=== PATIENT | male | born 1965 | race Caucasian/White ===

== ENCOUNTER 2018-04-15 21:12 | Emergency (ER) | payer OTHER ==
[2018-04-15 21:55] LABS: BASOPHIL % 0.5 % (0-2); PLATELET COUNT 240 x10^3mcL (130-400); RED CELL DISTRIBUTION WIDTH 14.4 % (11.5-14.5)
[2018-04-15 22:01] LABS: CARBON DIOXIDE 26.4 mmol/L (21-32); CHLORIDE SERUM 89 mmol/L (98-107); CREATININE SERUM 0.8 mg/dL (0.7-1.3); GFR1 > 60 mL/min; GLUCOSE SERUM 205 mg/dL (74-106); SODIUM SERUM 126 mmol/L (136-145)
[2018-04-15 22:05] LABS: ALBUMIN 3.7 g/dL (3.4-5.0); ALKALINE PHOSPHATASE 117 U/L (46-116); ALT/SGPT 47 U/L (16-63); AST/SGOT 40 U/L (15-37); BILIRUBIN TOTAL 0.93 mg/dL (0.20-1.00); LIPASE 133 IU/L (73-393); MAGNESIUM 1.7 mg/dL (1.8-2.4); TOTAL PROTEIN, SERUM 7.3 g/dL (6.4-8.2)
[2018-04-16 00:15] LABS: AMPHETAMINE QUAL UR NONE DETECTED (NEG <=1000)
[2018-04-16 00:49] VITALS: BP 142/103
== END 2018-04-16 00:49 | disposition home or self-care (01) ==
LOC: ED 21:12
PROVIDERS: Emergency Medicine
DX: K29.00 Acute gastritis without bleeding (principal); E87.1 Hypo-osmolality and hyponatremia; F17.200 Nicotine dependence, unspecified, uncomplicated; Z71.6 Tobacco abuse counseling; F14.10 Cocaine abuse, uncomplicated; I10 Essential (primary) hypertension; E11.9 Type 2 diabetes mellitus without complications; Z88.6 Allergy status to analgesic agent
CPT/HCPCS: 99406; G0480; J2270; J2405; J3490

== ENCOUNTER 2018-08-13 13:35 | Inpatient (IN) | payer OTHER ==
[~2018-08-13] VITALS: Ht 180.3 cm; Wt 71.9 kg
[2018-08-13 13:45] VITALS: Ht 180.3 cm; Wt 71.9 kg
[2018-08-13 15:01] LABS: ALBUMIN 3.7 g/dL (3.4-5.0); ALKALINE PHOSPHATASE 94 U/L (46-116); ALT/SGPT 23 U/L (16-63); AST/SGOT 29 U/L (15-37); CARBON DIOXIDE 20.3 mmol/L (21-32); CHLORIDE SERUM 83 mmol/L (98-107); CREATININE SERUM 0.6 mg/dL (0.7-1.3); GFR1 > 60 mL/min; GLUCOSE SERUM 221 mg/dL (74-106); LIPASE 137 IU/L (73-393); POTASSIUM SERUM 4.1 mmol/L (3.5-5.1); TOTAL PROTEIN, SERUM 7.7 g/dL (6.4-8.2)
[2018-08-13 15:03] LABS: SODIUM SERUM 116 mmol/L (136-145)
[2018-08-13 15:07] LABS: CALCIUM 8.6 mg/dL (8.5-10.1)
[2018-08-13 15:18] LABS: BASOPHIL % 0.6 % (0-2); PLATELET COUNT 290 x10^3mcL (130-400); RED CELL DISTRIBUTION WIDTH 13.8 % (11.5-14.5)
[2018-08-13 16:58] LABS: AMPHETAMINE QUAL UR NONE DETECTED (See below)
[2018-08-13 17:42] LABS: MAGNESIUM 1.6 mg/dL (1.8-2.4); PHOSPHOROUS 3.3 mg/dL (2.5-4.9)
[2018-08-13] MEDS ORDERED: XAN1 PO (17:46)
[2018-08-13] MEDS ORDERED: LISINOPRIL2.5 MG PO (17:46)
[2018-08-13] MEDS ORDERED: METFORMIN HCL1000 MG PO (17:46)
[2018-08-13 17:47] LABS: T3 TOTAL 0.7 ng/mL
[2018-08-13] MEDS ORDERED: LANTUS SOLOS100 U/M1 SQ (17:49)
[2018-08-13 17:54] LABS: CHOLESTEROL/HDL RATIO 2.7
[2018-08-13 18:30] LABS: FREE T4 1.47 ng/dL (0.76-1.46); T4(THYROXINE) 7.8 ug/dL (4.7-13.3)
[2018-08-13 18:40] VITALS: BP 147/100
[2018-08-13 21:14] VITALS: BP 156/91
[2018-08-14 00:37] LABS: microscopic required? NO
[2018-08-14 00:56] LABS: urine erythrocyte NEGATIVE (NEGATIVE)
[2018-08-14 05:04] VITALS: BP 150/96
[2018-08-14 07:08] LABS: BASOPHIL % 0.4 % (0-2); PLATELET COUNT 271 x10^3mcL (130-400); RED CELL DISTRIBUTION WIDTH 13.4 % (11.5-14.5)
[2018-08-14 07:09] LABS: CARBON DIOXIDE 22.9 mmol/L (21-32); CHLORIDE SERUM 92 mmol/L (98-107); CREATININE SERUM 0.8 mg/dL (0.7-1.3); GFR1 > 60 mL/min; GLUCOSE SERUM 195 mg/dL (74-106); POTASSIUM SERUM 3.9 mmol/L (3.5-5.1); SODIUM SERUM 126 mmol/L (136-145)
[2018-08-14 08:44] VITALS: BP 166/100
[2018-08-14 13:11] VITALS: BP 162/100
[2018-08-14 14:46] VITALS: BP 159/94
[2018-08-14 17:09] VITALS: BP 151/94
[2018-08-14 20:19] VITALS: BP 154/93
[2018-08-15] VITALS (7 sets, daily range): BP systolic 139–152; BP diastolic 86–104
[2018-08-15 06:30] LABS: BASOPHIL % 0.4 % (0-2); PLATELET COUNT 258 x10^3mcL (130-400); RED CELL DISTRIBUTION WIDTH 13.5 % (11.5-14.5)
[2018-08-15 06:49] LABS: CALCIUM 8.6 mg/dL (8.5-10.1); CARBON DIOXIDE 26.3 mmol/L (21-32); CHLORIDE SERUM 96 mmol/L (98-107); CREATININE SERUM 0.7 mg/dL (0.7-1.3); GFR1 > 60 mL/min; GLUCOSE SERUM 223 mg/dL (74-106); MAGNESIUM 1.7 mg/dL (1.8-2.4); POTASSIUM SERUM 4.4 mmol/L (3.5-5.1); SODIUM SERUM 129 mmol/L (136-145)
[2018-08-15] MEDS ORDERED: LISINOPRIL10 MG PO (14:37)
[2018-08-15] MEDS ORDERED: NIC21 TD (14:37)
[2018-08-16 00:24] VITALS: BP 119/86
[2018-08-16 05:16] VITALS: BP 130/82
[2018-08-16 05:42] LABS: BASOPHIL % 0.4 % (0-2); PLATELET COUNT 274 x10^3mcL (130-400); RED CELL DISTRIBUTION WIDTH 13.4 % (11.5-14.5)
[2018-08-16 06:00] LABS: CALCIUM 8.7 mg/dL (8.5-10.1); CARBON DIOXIDE 25.8 mmol/L (21-32); CHLORIDE SERUM 96 mmol/L (98-107); CREATININE SERUM 0.9 mg/dL (0.7-1.3); GFR1 > 60 mL/min; GLUCOSE SERUM 236 mg/dL (74-106); MAGNESIUM 1.9 mg/dL (1.8-2.4); POTASSIUM SERUM 3.9 mmol/L (3.5-5.1); SODIUM SERUM 130 mmol/L (136-145)
[2018-08-16 09:24] VITALS: BP 136/88
[2018-08-16 10:22] VITALS: BP 136/88
[2018-08-16 13:26] VITALS: BP 100/68
== END 2018-08-16 13:50 | disposition home or self-care (01) | DRG 896 ==
LOC: ED 13:35 → DU 15:42
PROVIDERS: Emergency Medicine; Internal Medicine
DX: F13.239 Sedative, hypnotic or anxiolytic dependence with withdrawal, unspecified (principal); G93.41 Metabolic encephalopathy; E87.1 Hypo-osmolality and hyponatremia; G90.8 Other disorders of autonomic nervous system; T42.4X5A Adverse effect of benzodiazepines, initial encounter; G47.00 Insomnia, unspecified; F10.129 Alcohol abuse with intoxication, unspecified; E86.0 Dehydration; E83.42 Hypomagnesemia; E11.65 Type 2 diabetes mellitus with hyperglycemia; I10 Essential (primary) hypertension; J32.3 Chronic sphenoidal sinusitis; F41.9 Anxiety disorder, unspecified; Y90.0 Blood alcohol level of less than 20 mg/100 ml; Z68.22 Body mass index [BMI] 22.0-22.9, adult; Z79.4 Long term (current) use of insulin; Z79.84 Long term (current) use of oral hypoglycemic drugs
CPT/HCPCS: 82962; 84439; C9113; G0480; J2060; J2405; J3475; J3490; J7030; Q0092

== ENCOUNTER 2018-09-01 12:24 | Emergency (ER) | payer OTHER ==
[~2018-09-01] VITALS: Ht 180.3 cm; Wt 67.1 kg
[~2018-09-01 12:24] MED LIST: LANTUS SOLOS100 U/M1 SQ; LISINOPRIL10 MG PO; LISINOPRIL2.5 MG PO; METFORMIN HCL1000 MG PO; NIC21 TD; XAN1 PO
[2018-09-01 12:28] VITALS: Ht 180.3 cm; Wt 67.1 kg
[2018-09-01 13:19] LABS: BASOPHIL % 0.3 % (0-2); PLATELET COUNT 357 x10^3mcL (130-400); RED CELL DISTRIBUTION WIDTH 14.2 % (11.5-14.5)
[2018-09-01 13:30] LABS: CALCIUM 8.7 mg/dL (8.5-10.1); CARBON DIOXIDE 26.7 mmol/L (21-32); CHLORIDE SERUM 95 mmol/L (98-107); CREATININE SERUM 0.8 mg/dL (0.7-1.3); GFR1 > 60 mL/min; GLUCOSE SERUM 296 mg/dL (74-106); POTASSIUM SERUM 4.4 mmol/L (3.5-5.1); SODIUM SERUM 129 mmol/L (136-145)
[2018-09-01 13:34] LABS: ALBUMIN 3.5 g/dL (3.4-5.0); ALKALINE PHOSPHATASE 103 U/L (46-116); ALT/SGPT 25 U/L (16-63); AST/SGOT 24 U/L (15-37); BILIRUBIN TOTAL 0.5 mg/dL (0.20-1.00); MAGNESIUM 1.4 mg/dL (1.8-2.4); TOTAL PROTEIN, SERUM 7.7 g/dL (6.4-8.2)
[2018-09-01 14:39] LABS: AMPHETAMINE QUAL UR NONE DETECTED (See below)
[2018-09-01 16:03] VITALS: BP 149/96
== END 2018-09-01 16:03 | disposition home or self-care (01) ==
LOC: ED 12:24
PROVIDERS: Emergency Medicine
DX: R53.1 Weakness (principal); F41.9 Anxiety disorder, unspecified; E87.1 Hypo-osmolality and hyponatremia; F10.10 Alcohol abuse, uncomplicated; I10 Essential (primary) hypertension; E11.9 Type 2 diabetes mellitus without complications; Z98.890 Other specified postprocedural states; Z88.6 Allergy status to analgesic agent
CPT/HCPCS: G0480

== ENCOUNTER 2018-09-20 22:12 | Emergency (ER) | payer OTHER ==
[~2018-09-20] VITALS: Ht 182.9 cm; Wt 65.4 kg
[2018-09-20 23:08] LABS: BASOPHIL % 0.4 % (0-2); PLATELET COUNT 320 x10^3mcL (130-400); RED CELL DISTRIBUTION WIDTH 14.2 % (11.5-14.5)
[2018-09-20 23:25] LABS: ALBUMIN 3.7 g/dL (3.4-5.0); ALKALINE PHOSPHATASE 100 U/L (46-116); ALT/SGPT 29 U/L (16-63); AST/SGOT 21 U/L (15-37); BILIRUBIN TOTAL 0.9 mg/dL (0.20-1.00); CALCIUM 8.7 mg/dL (8.5-10.1); CARBON DIOXIDE 24.8 mmol/L (21-32); CHLORIDE SERUM 88 mmol/L (98-107); CREATININE SERUM 0.9 mg/dL (0.7-1.3); GFR1 > 60 mL/min; GLUCOSE SERUM 239 mg/dL (74-106); POTASSIUM SERUM 4.1 mmol/L (3.5-5.1); TOTAL PROTEIN, SERUM 7.6 g/dL (6.4-8.2)
[2018-09-20 23:28] LABS: SODIUM SERUM 124 mmol/L (136-145)
[2018-09-21 00:50] VITALS: BP 153/94
== END 2018-09-21 00:50 | disposition home or self-care (01) ==
LOC: ED 22:12
PROVIDERS: Emergency Medicine
DX: E87.1 Hypo-osmolality and hyponatremia (principal); F41.9 Anxiety disorder, unspecified; I10 Essential (primary) hypertension; E11.9 Type 2 diabetes mellitus without complications; F17.210 Nicotine dependence, cigarettes, uncomplicated; Z88.5 Allergy status to narcotic agent
CPT/HCPCS: 36415; 82962; Q0162

== ENCOUNTER 2018-10-24 15:08 | Inpatient (IN) | payer OTHER ==
[~2018-10-24] VITALS: Ht 180.3 cm; Wt 63.5 kg
[2018-10-24 15:11] VITALS: Ht 180.3 cm; Wt 63.5 kg
[2018-10-24 15:47] LABS: CALCIUM 9.4 mg/dL (8.5-10.1); CARBON DIOXIDE 27.7 mmol/L (21-32); CHLORIDE SERUM 86 mmol/L (98-107); CREATININE SERUM 0.8 mg/dL (0.7-1.3); GFR1 > 60 mL/min; GLUCOSE SERUM 233 mg/dL (74-106); POTASSIUM SERUM 4.4 mmol/L (3.5-5.1)
[2018-10-24 15:50] LABS: AMPHETAMINE QUAL UR NONE DETECTED (See below)
[2018-10-24 15:56] LABS: SODIUM SERUM 123 mmol/L (136-145)
[2018-10-24 16:06] LABS: BASOPHIL % 0.4 % (0-2); PLATELET COUNT 308 x10^3mcL (130-400); RED CELL DISTRIBUTION WIDTH 13.5 % (11.5-14.5)
[2018-10-24 17:56] LABS: CHOLESTEROL/HDL RATIO 2.6; MAGNESIUM 1.5 mg/dL (1.8-2.4); PHOSPHOROUS 3.7 mg/dL (2.5-4.9)
[2018-10-24 17:58] LABS: T3 TOTAL 0.73 ng/mL
[2018-10-24 18:06] LABS: FREE T4 1.2 ng/dL (0.76-1.46); FREE THYROXINE INDEX 2.8 ug/dL (1.4-4.5); T4(THYROXINE) 7.2 ug/dL (4.7-13.3)
[2018-10-24 18:29] VITALS: BP 151/97
[2018-10-24 19:20] VITALS: BP 145/91
[2018-10-25 06:14] VITALS: BP 144/90
[2018-10-25 07:48] VITALS: BP 162/96
[2018-10-25 09:31] LABS: BASOPHIL % 0.4 % (0-2); PLATELET COUNT 293 x10^3mcL (130-400); RED CELL DISTRIBUTION WIDTH 13.5 % (11.5-14.5)
[2018-10-25 10:15] LABS: CARBON DIOXIDE 29.9 mmol/L (21-32); CHLORIDE SERUM 96 mmol/L (98-107); CREATININE SERUM 0.9 mg/dL (0.7-1.3); GFR1 > 60 mL/min; GLUCOSE SERUM 272 mg/dL (74-106); POTASSIUM SERUM 4.4 mmol/L (3.5-5.1); SODIUM SERUM 131 mmol/L (136-145)
[2018-10-25 11:51] VITALS: BP 150/90
[2018-10-25 17:18] VITALS: BP 152/87
[2018-10-25 18:06] LABS: microscopic required? NO
[2018-10-25 18:13] LABS: UA SPECIFIC GRAVITY <=1.005 (1.005-1.035); urine erythrocyte NEGATIVE (NEGATIVE)
[2018-10-25 19:15] VITALS: BP 149/89
[2018-10-25 20:06] VITALS: BP 150/87
[2018-10-26 05:35] VITALS: BP 151/92
[2018-10-26 06:42] LABS: CALCIUM 9.1 mg/dL (8.5-10.1); CARBON DIOXIDE 28.4 mmol/L (21-32); CHLORIDE SERUM 98 mmol/L (98-107); CREATININE SERUM 0.9 mg/dL (0.7-1.3); GFR1 > 60 mL/min; GLUCOSE SERUM 197 mg/dL (74-106); MAGNESIUM 1.9 mg/dL (1.8-2.4); SODIUM SERUM 132 mmol/L (136-145)
[2018-10-26 06:43] LABS: BASOPHIL % 0.7 % (0-2); PLATELET COUNT 256 x10^3mcL (130-400); RED CELL DISTRIBUTION WIDTH 13.7 % (11.5-14.5)
[2018-10-26 09:20] VITALS: BP 144/79
[2018-10-26 11:13] LABS: CALCIUM 8.6 mg/dL (8.5-10.1); CARBON DIOXIDE 29.4 mmol/L (21-32); CHLORIDE SERUM 99 mmol/L (98-107); CREATININE SERUM 0.8 mg/dL (0.7-1.3); GFR1 > 60 mL/min; GLUCOSE SERUM 227 mg/dL (74-106); POTASSIUM SERUM 4.4 mmol/L (3.5-5.1); SODIUM SERUM 131 mmol/L (136-145)
[2018-10-26 12:58] VITALS: BP 149/105
[2018-10-26] MEDS ORDERED: VIS25 PO (13:02)
[2018-10-26 13:58] VITALS: BP 149/105
== END 2018-10-26 17:16 | disposition home or self-care (01) | DRG 897 ==
LOC: ED 15:08 → DU 17:01 → MU 17:01 → DU 10-25 17:43
PROVIDERS: Emergency Medicine; Family Medicine; General Practice
DX: F13.239 Sedative, hypnotic or anxiolytic dependence with withdrawal, unspecified (principal); D68.69 Other thrombophilia; E87.1 Hypo-osmolality and hyponatremia; E86.0 Dehydration; G25.1 Drug-induced tremor; E11.65 Type 2 diabetes mellitus with hyperglycemia; E83.42 Hypomagnesemia; I10 Essential (primary) hypertension; F41.1 Generalized anxiety disorder; F10.10 Alcohol abuse, uncomplicated; F12.10 Cannabis abuse, uncomplicated; F17.210 Nicotine dependence, cigarettes, uncomplicated; Z68.21 Body mass index [BMI] 21.0-21.9, adult; Z79.4 Long term (current) use of insulin; Z79.84 Long term (current) use of oral hypoglycemic drugs; Y92.009 Unspecified place in unspecified non-institutional (private) residence as the place of occurrence of the external cause
CPT/HCPCS: 82962; 83880; 84439; G0480; J2060; J2405; J7030; J7040; Q0092

== ENCOUNTER 2018-11-01 13:50 | Inpatient (IN) | payer OTHER ==
[~2018-11-01] VITALS: Ht 182.9 cm; Wt 66.8 kg
[~2018-11-01 13:50] MED LIST changes: +VIS25 PO
[2018-11-01 14:04] VITALS: Ht 182.9 cm; Wt 66.8 kg
[2018-11-01 14:16] LABS: BASOPHIL % 0.7 % (0-2); PLATELET COUNT 336 x10^3mcL (130-400); RED CELL DISTRIBUTION WIDTH 13.3 % (11.5-14.5)
[2018-11-01 14:31] LABS: ALBUMIN 4.1 g/dL (3.4-5.0); ALKALINE PHOSPHATASE 108 U/L (46-116); ALT/SGPT 17 U/L (16-63); AST/SGOT 14 U/L (15-37); CALCIUM 9.1 mg/dL (8.5-10.1); CARBON DIOXIDE 22.9 mmol/L (21-32); CHLORIDE SERUM 81 mmol/L (98-107); CREATININE SERUM 0.8 mg/dL (0.7-1.3); GFR1 > 60 mL/min; GLUCOSE SERUM 253 mg/dL (74-106); LIPASE 52 IU/L (73-393); TOTAL PROTEIN, SERUM 8.1 g/dL (6.4-8.2)
[2018-11-01 14:56] LABS: POTASSIUM SERUM 4.9 mmol/L (3.5-5.1)
[2018-11-01 15:20] LABS: microscopic required? YES; urine erythrocyte TRACE (NEGATIVE)
[2018-11-01 15:35] LABS: SODIUM SERUM 116 mmol/L (136-145)
[2018-11-01 15:37] LABS: AMPHETAMINE QUAL UR POSITIVE (See below)
[2018-11-01] MEDS ORDERED: ATENOLOL25 MG (15:59)
[2018-11-01] MEDS ORDERED: PAXIL10 MG (16:01)
[2018-11-01 16:37] LABS: MAGNESIUM 1.5 mg/dL (1.8-2.4); PHOSPHOROUS 3.2 mg/dL (2.5-4.9)
[2018-11-01 16:55] VITALS: BP 142/87
[2018-11-01 18:28] LABS: CARBON DIOXIDE 22.9 mmol/L (21-32); CHLORIDE SERUM 87 mmol/L (98-107); CREATININE SERUM 0.8 mg/dL (0.7-1.3); GFR1 > 60 mL/min; GLUCOSE SERUM 189 mg/dL (74-106); POTASSIUM SERUM 4.4 mmol/L (3.5-5.1)
[2018-11-01 18:30] LABS: SODIUM SERUM 121 mmol/L (136-145)
[2018-11-01 21:11] VITALS: BP 146/90
[2018-11-01 22:20] LABS: CARBON DIOXIDE 23.8 mmol/L (21-32); CHLORIDE SERUM 90 mmol/L (98-107); CREATININE SERUM 0.8 mg/dL (0.7-1.3); GFR1 > 60 mL/min; GLUCOSE SERUM 152 mg/dL (74-106); POTASSIUM SERUM 4.4 mmol/L (3.5-5.1)
[2018-11-01 22:27] LABS: SODIUM SERUM 124 mmol/L (136-145)
[2018-11-02 05:55] VITALS: BP 111/81
[2018-11-02 07:05] LABS: BASOPHIL % 0.4 % (0-2); PLATELET COUNT 308 x10^3mcL (130-400); RED CELL DISTRIBUTION WIDTH 13.1 % (11.5-14.5)
[2018-11-02 07:36] LABS: CALCIUM 9.1 mg/dL (8.5-10.1); CARBON DIOXIDE 23.1 mmol/L (21-32); CHLORIDE SERUM 90 mmol/L (98-107); GFR1 > 60 mL/min; GLUCOSE SERUM 209 mg/dL (74-106); POTASSIUM SERUM 4.2 mmol/L (3.5-5.1); SODIUM SERUM 128 mmol/L (136-145)
[2018-11-02 09:18] VITALS: BP 146/94
[2018-11-02] MEDS ORDERED: LIB25 PO ×4 (11:54→11:55)
[2018-11-02 11:58] VITALS: BP 146/94
[2018-11-02 15:25] LABS: CALCIUM 9.3 mg/dL (8.5-10.1); CARBON DIOXIDE 22.4 mmol/L (21-32); CHLORIDE SERUM 94 mmol/L (98-107); GFR1 > 60 mL/min; GLUCOSE SERUM 215 mg/dL (74-106); POTASSIUM SERUM 4.1 mmol/L (3.5-5.1); SODIUM SERUM 128 mmol/L (136-145)
[2018-11-02 17:07] VITALS: BP 120/79
[2018-11-02 20:04] VITALS: BP 115/73
[2018-11-03 05:44] VITALS: BP 113/76
[2018-11-03 07:47] LABS: ALKALINE PHOSPHATASE 89 U/L (46-116); ALT/SGPT 14 U/L (16-63); AST/SGOT 12 U/L (15-37); BILIRUBIN TOTAL 0.5 mg/dL (0.20-1.00); CARBON DIOXIDE 22.7 mmol/L (21-32); CHLORIDE SERUM 95 mmol/L (98-107); CREATININE SERUM 0.9 mg/dL (0.7-1.3); GFR1 > 60 mL/min; GLUCOSE SERUM 173 mg/dL (74-106); MAGNESIUM 1.6 mg/dL (1.8-2.4); POTASSIUM SERUM 4.4 mmol/L (3.5-5.1); SODIUM SERUM 131 mmol/L (136-145); TOTAL PROTEIN, SERUM 6.8 g/dL (6.4-8.2)
[2018-11-03 07:50] LABS: ALBUMIN 3.3 g/dL (3.4-5.0)
[2018-11-03 08:22] VITALS: BP 116/87
[2018-11-03 08:29] LABS: BASOPHIL % 0.7 % (0-2); PLATELET COUNT 293 x10^3mcL (130-400); RED CELL DISTRIBUTION WIDTH 12.7 % (11.5-14.5)
[2018-11-03 13:47] VITALS: BP 116/87
== END 2018-11-03 14:07 | disposition home or self-care (01) | DRG 896 ==
LOC: ED 13:50 → DU 16:03 → MU 16:03 → DU 16:54
PROVIDERS: Emergency Medicine; Family Medicine; Internal Medicine
DX: F10.239 Alcohol dependence with withdrawal, unspecified (principal); G92 Toxic encephalopathy; E87.1 Hypo-osmolality and hyponatremia; F10.229 Alcohol dependence with intoxication, unspecified; E11.65 Type 2 diabetes mellitus with hyperglycemia; I10 Essential (primary) hypertension; E86.0 Dehydration; F41.1 Generalized anxiety disorder; E86.1 Hypovolemia; R74.0 Nonspecific elevation of levels of transaminase and lactic acid dehydrogenase [LDH]; D72.829 Elevated white blood cell count, unspecified; Y90.0 Blood alcohol level of less than 20 mg/100 ml; Z79.899 Other long term (current) drug therapy; F17.210 Nicotine dependence, cigarettes, uncomplicated; Z79.84 Long term (current) use of oral hypoglycemic drugs; Z91.19 Patient's noncompliance with other medical treatment and regimen
CPT/HCPCS: 82962; 90732; C9113; G0480; J2060; J7030; J7070; Q0092; Q0177

== ENCOUNTER 2018-11-24 20:08 | Emergency (ER) | payer OTHER ==
[~2018-11-24] VITALS: Ht 180.3 cm; Wt 65.8 kg
[~2018-11-24 20:08] MED LIST changes: +ATENOLOL25 MG; +LIB25 PO; +PAXIL10 MG
[2018-11-24 20:13] VITALS: Ht 180.3 cm; Wt 65.8 kg
[2018-11-24 22:16] LABS: BASOPHIL % 0.5 % (0-2); PLATELET COUNT 290 x10^3mcL (130-400); RED CELL DISTRIBUTION WIDTH 12.3 % (11.5-14.5)
[2018-11-24 22:32] LABS: ALKALINE PHOSPHATASE 101 U/L (46-116); ALT/SGPT 18 U/L (16-63); AST/SGOT 16 U/L (15-37); CALCIUM 8.1 mg/dL (8.5-10.1); CARBON DIOXIDE 21.9 mmol/L (21-32); CHLORIDE SERUM 81 mmol/L (98-107); CREATININE SERUM 0.8 mg/dL (0.7-1.3); GFR1 > 60 mL/min; GLUCOSE SERUM 180 mg/dL (74-106); TOTAL PROTEIN, SERUM 6.7 g/dL (6.4-8.2)
[2018-11-24 22:36] LABS: ALBUMIN 3.2 g/dL (3.4-5.0)
[2018-11-24 22:47] LABS: SODIUM SERUM 113 mmol/L (136-145)
[2018-11-25 05:03] VITALS: BP 128/73
== END 2018-11-25 05:03 | disposition short-term general hospital (02) ==
LOC: ED 20:08
PROVIDERS: Emergency Medicine
DX: F41.9 Anxiety disorder, unspecified (principal); E87.1 Hypo-osmolality and hyponatremia; I10 Essential (primary) hypertension; E11.9 Type 2 diabetes mellitus without complications; Z98.890 Other specified postprocedural states; Z88.5 Allergy status to narcotic agent
CPT/HCPCS: J2060; J7030

== ENCOUNTER 2018-12-23 05:17 | Inpatient (IN) | payer OTHER ==
[~2018-12-23] VITALS: Ht 180.3 cm; Wt 58.1 kg
[2018-12-23 06:16] LABS: BASOPHIL % 0.3 % (0-2); PLATELET COUNT 357 x10^3mcL (130-400); RED CELL DISTRIBUTION WIDTH 13.2 % (11.5-14.5)
[2018-12-23 06:31] LABS: ALBUMIN 4.5 g/dL (3.4-5.0); ALKALINE PHOSPHATASE 130 U/L (46-116); ALT/SGPT 18 U/L (16-63); AST/SGOT 17 U/L (15-37); BILIRUBIN TOTAL 1.1 mg/dL (0.20-1.00); CALCIUM 9.6 mg/dL (8.5-10.1); CARBON DIOXIDE 16.2 mmol/L (21-32); CHLORIDE SERUM 81 mmol/L (98-107); CREATININE SERUM 1.4 mg/dL (0.7-1.3); GFR1 56 mL/min; GLUCOSE SERUM 381 mg/dL (74-106); POTASSIUM SERUM 4.3 mmol/L (3.5-5.1)
[2018-12-23 06:36] LABS: TOTAL PROTEIN, SERUM 8.7 g/dL (6.4-8.2)
[2018-12-23 06:39] LABS: SODIUM SERUM 122 mmol/L (136-145)
[2018-12-23 08:12] LABS: AMPHETAMINE QUAL UR NONE DETECTED (See below)
[2018-12-23 08:48] LABS: UA SPECIFIC GRAVITY 1.025 (1.005-1.035); microscopic required? YES; urine erythrocyte TRACE (NEGATIVE)
[2018-12-23 13:50] VITALS: BP 158/102
[2018-12-23 17:00] VITALS: BP 147/90
[2018-12-23 21:20] VITALS: BP 144/87
[2018-12-24 05:54] VITALS: BP 123/78
[2018-12-24 06:10] LABS: CALCIUM 8.5 mg/dL (8.5-10.1); CARBON DIOXIDE 22.8 mmol/L (21-32); CHLORIDE SERUM 94 mmol/L (98-107); CREATININE SERUM 0.7 mg/dL (0.7-1.3); GFR1 > 60 mL/min; GLUCOSE SERUM 162 mg/dL (74-106); MAGNESIUM 1.7 mg/dL (1.8-2.4); POTASSIUM SERUM 3.5 mmol/L (3.5-5.1); SODIUM SERUM 129 mmol/L (136-145)
[2018-12-24 08:44] VITALS: BP 155/92
[2018-12-24 09:01] LABS: PLATELET COUNT 256 x10^3mcL (130-400); RED CELL DISTRIBUTION WIDTH 12.9 % (11.5-14.5)
[2018-12-24 12:55] VITALS: BP 96/63
[2018-12-24 16:52] VITALS: BP 118/72
[2018-12-25] VITALS (7 sets, daily range): BP systolic 117–153; BP diastolic 63–93
[2018-12-25 07:29] LABS: CALCIUM 7.6 mg/dL (8.5-10.1); CARBON DIOXIDE 22.7 mmol/L (21-32); CHLORIDE SERUM 99 mmol/L (98-107); CREATININE SERUM 0.7 mg/dL (0.7-1.3); GFR1 > 60 mL/min; GLUCOSE SERUM 224 mg/dL (74-106); POTASSIUM SERUM 3.3 mmol/L (3.5-5.1); SODIUM SERUM 133 mmol/L (136-145)
[2018-12-25 09:38] LABS: BASOPHIL % 0.7 % (0-2); PLATELET COUNT 247 x10^3mcL (130-400); RED CELL DISTRIBUTION WIDTH 13.7 % (11.5-14.5)
[2018-12-26 05:26] VITALS: BP 154/89
[2018-12-26 08:59] VITALS: BP 129/84
[2018-12-26 12:34] VITALS: BP 151/87
[2018-12-26 13:19] VITALS: Ht 180.3 cm; Wt 58.1 kg
[2018-12-26 16:26] VITALS: BP 125/82
[2018-12-26 23:59] VITALS: BP 152/100
[2018-12-27 05:22] VITALS: BP 145/93
[2018-12-27 06:18] LABS: BASOPHIL % 0.8 % (0-2); PLATELET COUNT 253 x10^3mcL (130-400); RED CELL DISTRIBUTION WIDTH 13.4 % (11.5-14.5)
[2018-12-27 06:46] LABS: CALCIUM 8.4 mg/dL (8.5-10.1); CARBON DIOXIDE 27.5 mmol/L (21-32); CHLORIDE SERUM 99 mmol/L (98-107); CREATININE SERUM 0.7 mg/dL (0.7-1.3); GFR1 > 60 mL/min; GLUCOSE SERUM 193 mg/dL (74-106); MAGNESIUM 1.4 mg/dL (1.8-2.4); POTASSIUM SERUM 3.6 mmol/L (3.5-5.1); SODIUM SERUM 135 mmol/L (136-145)
[2018-12-27 08:52] VITALS: BP 134/89
[2018-12-27 13:28] VITALS: BP 128/89
[2018-12-27 15:27] VITALS: BP 128/89
[2018-12-27 17:28] VITALS: BP 135/82
== END 2018-12-27 17:35 | disposition home health service (06) | DRG 690 ==
LOC: ED 05:17 → MU 09:28 → DU 09:28 → MU 13:42 → DU 13:56
PROVIDERS: Emergency Medicine; Specialist; ADMIT Internal Medicine
DX: N39.0 Urinary tract infection, site not specified (principal); E87.1 Hypo-osmolality and hyponatremia; F40.01 Agoraphobia with panic disorder; I16.0 Hypertensive urgency; I12.9 Hypertensive chronic kidney disease with stage 1 through stage 4 chronic kidney disease, or unspecified chronic kidney disease; N18.1 Chronic kidney disease, stage 1; E11.9 Type 2 diabetes mellitus without complications; F41.9 Anxiety disorder, unspecified; F32.9 Major depressive disorder, single episode, unspecified; F10.10 Alcohol abuse, uncomplicated; Z79.4 Long term (current) use of insulin
CPT/HCPCS: 82962; 97112-GP; 97116-GP; C9113; G0480; J0696; J1815; J2060; J3490; J7030; Q0092; Q0177

== ENCOUNTER 2019-01-11 09:57 | Emergency (ER) | payer OTHER ==
[~2019-01-11] VITALS: Ht 180.3 cm; Wt 59.0 kg
[~2019-01-11 09:57] MED LIST changes: -PAXIL10 MG; +PAXIL10 MG PO
[2019-01-11 10:03] VITALS: Ht 180.3 cm; Wt 59.0 kg
[2019-01-11 11:16] VITALS: BP 129/79
== END 2019-01-11 11:16 | disposition home or self-care (01) ==
LOC: ED 09:57
DX: F41.9 Anxiety disorder, unspecified (principal); I10 Essential (primary) hypertension; E11.9 Type 2 diabetes mellitus without complications; E11.65 Type 2 diabetes mellitus with hyperglycemia; Z88.5 Allergy status to narcotic agent; Z98.890 Other specified postprocedural states
CPT/HCPCS: 82962

== ENCOUNTER 2019-01-11 12:09 | Inpatient (IN) | payer OTHER ==
[~2019-01-11] VITALS: Ht 180.3 cm; Wt 59.1 kg
[2019-01-11 13:36] LABS: ALBUMIN 3.6 g/dL (3.4-5.0); ALKALINE PHOSPHATASE 172 U/L (46-116); ALT/SGPT 20 U/L (16-63); AST/SGOT 21 U/L (15-37); BILIRUBIN TOTAL 1.22 mg/dL (0.20-1.00); CALCIUM 8.8 mg/dL (8.5-10.1); CARBON DIOXIDE 24.4 mmol/L (21-32); CHLORIDE SERUM 83 mmol/L (98-107); CREATININE SERUM 0.9 mg/dL (0.7-1.3); GFR1 > 60 mL/min; GLUCOSE SERUM 270 mg/dL (74-106); POTASSIUM SERUM 4.2 mmol/L (3.5-5.1); TOTAL PROTEIN, SERUM 7.5 g/dL (6.4-8.2)
[2019-01-11 13:38] LABS: SODIUM SERUM 122 mmol/L (136-145)
[2019-01-11 14:00] LABS: BASOPHIL % 0.2 % (0-2); RED CELL DISTRIBUTION WIDTH 13.4 % (11.5-14.5)
[2019-01-11 14:02] LABS: PLATELET COUNT 416 x10^3mcL (130-400)
[2019-01-11 16:22] LABS: microscopic required? YES; urine erythrocyte TRACE (NEGATIVE)
[2019-01-11 16:30] LABS: AMPHETAMINE QUAL UR NONE DETECTED (See below)
[2019-01-11 19:20] LABS: MAGNESIUM 1.1 mg/dL (1.8-2.4); PHOSPHOROUS 3.8 mg/dL (2.5-4.9)
[2019-01-11 20:46] VITALS: BP 160/106
[2019-01-11 20:56] VITALS: Ht 180.3 cm; Wt 59.1 kg
[2019-01-11 21:20] LABS: CARBON DIOXIDE 27.9 mmol/L (21-32); CHLORIDE SERUM 88 mmol/L (98-107); CREATININE SERUM 0.8 mg/dL (0.7-1.3); GFR1 > 60 mL/min; GLUCOSE SERUM 160 mg/dL (74-106); POTASSIUM SERUM 3.8 mmol/L (3.5-5.1)
[2019-01-11 21:24] LABS: SODIUM SERUM 124 mmol/L (136-145)
[2019-01-11 22:43] VITALS: BP 129/85
[2019-01-12 05:34] VITALS: BP 149/96
[2019-01-12 07:22] LABS: BASOPHIL % 0.3 % (0-2); RED CELL DISTRIBUTION WIDTH 12.4 % (11.5-14.5)
[2019-01-12 07:23] LABS: PLATELET COUNT 404 x10^3mcL (130-400)
[2019-01-12 07:36] LABS: CALCIUM 8.3 mg/dL (8.5-10.1); CARBON DIOXIDE 26.1 mmol/L (21-32); CHLORIDE SERUM 96 mmol/L (98-107); CREATININE SERUM 0.7 mg/dL (0.7-1.3); GFR1 > 60 mL/min; GLUCOSE SERUM 131 mg/dL (74-106); MAGNESIUM 1.4 mg/dL (1.8-2.4); PHOSPHOROUS 1.9 mg/dL (2.5-4.9); POTASSIUM SERUM 3.6 mmol/L (3.5-5.1); SODIUM SERUM 132 mmol/L (136-145)
[2019-01-12 09:06] VITALS: BP 158/93
[2019-01-12 16:55] VITALS: BP 164/93
[2019-01-12 18:14] LABS: CALCIUM 8.1 mg/dL (8.5-10.1); CARBON DIOXIDE 26.1 mmol/L (21-32); CHLORIDE SERUM 94 mmol/L (98-107); CREATININE SERUM 0.7 mg/dL (0.7-1.3); GFR1 > 60 mL/min; GLUCOSE SERUM 177 mg/dL (74-106); POTASSIUM SERUM 3.6 mmol/L (3.5-5.1); SODIUM SERUM 129 mmol/L (136-145)
[2019-01-12 18:34] VITALS: BP 134/78
[2019-01-12 20:49] VITALS: BP 146/92
[2019-01-13 05:55] VITALS: BP 121/82
[2019-01-13 06:46] LABS: BASOPHIL % 0.8 % (0-2); PLATELET COUNT 322 x10^3mcL (130-400); RED CELL DISTRIBUTION WIDTH 13.6 % (11.5-14.5)
[2019-01-13 07:02] LABS: CALCIUM 8.1 mg/dL (8.5-10.1); CARBON DIOXIDE 26.4 mmol/L (21-32); CHLORIDE SERUM 94 mmol/L (98-107); CREATININE SERUM 0.7 mg/dL (0.7-1.3); GFR1 > 60 mL/min; GLUCOSE SERUM 216 mg/dL (74-106); MAGNESIUM 1.6 mg/dL (1.8-2.4); PHOSPHOROUS 2.7 mg/dL (2.5-4.9); POTASSIUM SERUM 3.4 mmol/L (3.5-5.1); SODIUM SERUM 130 mmol/L (136-145)
[2019-01-13 08:23] VITALS: BP 137/88
[2019-01-13 12:26] VITALS: BP 144/93
[2019-01-13 17:01] VITALS: BP 148/97
[2019-01-13 22:34] VITALS: BP 140/91
[2019-01-14 06:20] VITALS: BP 143/78
[2019-01-14 07:17] VITALS: BP 152/90
[2019-01-14 12:14] VITALS: BP 152/90
== END 2019-01-14 13:10 | disposition home or self-care (01) | DRG 640 ==
LOC: ED 12:09 → MU 18:47 → DU 18:47
PROVIDERS: Emergency Medicine; ADMIT General Practice
DX: E87.1 Hypo-osmolality and hyponatremia (principal); N17.0 Acute kidney failure with tubular necrosis; G93.41 Metabolic encephalopathy; Z68.1 Body mass index [BMI] 19.9 or less, adult; E11.65 Type 2 diabetes mellitus with hyperglycemia; F32.9 Major depressive disorder, single episode, unspecified; F41.1 Generalized anxiety disorder; R80.9 Proteinuria, unspecified; E83.39 Other disorders of phosphorus metabolism; E86.0 Dehydration; I10 Essential (primary) hypertension; E83.42 Hypomagnesemia; D72.829 Elevated white blood cell count, unspecified; F12.10 Cannabis abuse, uncomplicated; F10.20 Alcohol dependence, uncomplicated; Y90.0 Blood alcohol level of less than 20 mg/100 ml; Z79.4 Long term (current) use of insulin; Z79.84 Long term (current) use of oral hypoglycemic drugs; Z91.19 Patient's noncompliance with other medical treatment and regimen
CPT/HCPCS: 82962; G0480; J1815; J2405; J3475; J3490; J7030; Q0092; Q0177

== ENCOUNTER 2019-01-18 22:21 | Emergency (ER) | payer OTHER ==
[~2019-01-18] VITALS: Ht 177.8 cm; Wt 54.4 kg
[2019-01-18 22:25] VITALS: Ht 177.8 cm; Wt 54.4 kg
[2019-01-18 22:58] LABS: BASOPHIL % 0.3 % (0-2); RED CELL DISTRIBUTION WIDTH 13.3 % (11.5-14.5)
[2019-01-18 23:01] LABS: PLATELET COUNT 406 x10^3mcL (130-400)
[2019-01-18 23:11] LABS: CALCIUM 8.9 mg/dL (8.5-10.1); CARBON DIOXIDE 27.5 mmol/L (21-32); CHLORIDE SERUM 93 mmol/L (98-107); CREATININE SERUM 0.8 mg/dL (0.7-1.3); GFR1 > 60 mL/min; GLUCOSE SERUM 254 mg/dL (74-106); SODIUM SERUM 130 mmol/L (136-145)
[2019-01-18 23:15] LABS: ALBUMIN 3.8 g/dL (3.4-5.0); ALKALINE PHOSPHATASE 130 U/L (46-116); ALT/SGPT 19 U/L (16-63); AST/SGOT 13 U/L (15-37); BILIRUBIN TOTAL 0.4 mg/dL (0.20-1.00); MAGNESIUM 1.3 mg/dL (1.8-2.4); TOTAL PROTEIN, SERUM 7.4 g/dL (6.4-8.2)
[2019-01-19 04:07] VITALS: BP 133/85
== END 2019-01-19 04:07 | disposition home or self-care (01) ==
LOC: ED 22:21
PROVIDERS: Emergency Medicine
DX: F41.9 Anxiety disorder, unspecified (principal); E87.1 Hypo-osmolality and hyponatremia; E83.42 Hypomagnesemia; E11.65 Type 2 diabetes mellitus with hyperglycemia; I10 Essential (primary) hypertension; Z98.890 Other specified postprocedural states; Z88.5 Allergy status to narcotic agent
CPT/HCPCS: 82962; G0480; J2060; J3411; J3475; J3490; J7030; Q0092

== ENCOUNTER 2019-01-25 20:16 | Emergency (ER) | payer OTHER ==
[~2019-01-25] VITALS: Ht 182.9 cm; Wt 54.4 kg
[2019-01-25 20:27] VITALS: Ht 182.9 cm; Wt 54.4 kg
[2019-01-25 20:47] LABS: BASOPHIL % 0.3 % (0-2); PLATELET COUNT 356 x10^3mcL (130-400); RED CELL DISTRIBUTION WIDTH 13.4 % (11.5-14.5)
[2019-01-25 20:54] LABS: CALCIUM 8.8 mg/dL (8.5-10.1); CHLORIDE SERUM 96 mmol/L (98-107); CREATININE SERUM 0.8 mg/dL (0.7-1.3); GFR1 > 60 mL/min; GLUCOSE SERUM 161 mg/dL (74-106); POTASSIUM SERUM 4.2 mmol/L (3.5-5.1); SODIUM SERUM 131 mmol/L (136-145)
[2019-01-25 20:56] LABS: ALBUMIN 3.7 g/dL (3.4-5.0); ALKALINE PHOSPHATASE 137 U/L (46-116); AST/SGOT 26 U/L (15-37); BILIRUBIN TOTAL 0.75 mg/dL (0.20-1.00); TOTAL PROTEIN, SERUM 7.3 g/dL (6.4-8.2)
[2019-01-25 21:05] LABS: ALT/SGPT 14 U/L (16-63)
[2019-01-26 00:39] LABS: AMPHETAMINE QUAL UR NONE DETECTED (See below)
[2019-01-26 02:40] VITALS: BP 145/95
== END 2019-01-26 02:10 | disposition home or self-care (01) ==
LOC: ED 20:16
PROVIDERS: Emergency Medicine
DX: F41.9 Anxiety disorder, unspecified (principal); F10.129 Alcohol abuse with intoxication, unspecified; I10 Essential (primary) hypertension; E11.9 Type 2 diabetes mellitus without complications; Z88.5 Allergy status to narcotic agent
CPT/HCPCS: G0480; J1885; J3490; Q0092

== ENCOUNTER 2019-01-30 15:47 | Inpatient (IN) | payer OTHER ==
[~2019-01-30] VITALS: Ht 180.3 cm; Wt 59.5 kg
[2019-01-30 16:28] VITALS: Ht 180.3 cm; Wt 59.5 kg
[2019-01-30 17:31] LABS: BASOPHIL % 0.4 % (0-2); PLATELET COUNT 391 x10^3mcL (130-400); RED CELL DISTRIBUTION WIDTH 13.9 % (11.5-14.5)
[2019-01-30 17:40] LABS: ALBUMIN 4.2 g/dL (3.4-5.0); ALKALINE PHOSPHATASE 134 U/L (46-116); ALT/SGPT 16 U/L (16-63); AST/SGOT 16 U/L (15-37); BILIRUBIN TOTAL 0.9 mg/dL (0.20-1.00); CALCIUM 9.1 mg/dL (8.5-10.1); CARBON DIOXIDE 27.6 mmol/L (21-32); CHLORIDE SERUM 87 mmol/L (98-107); CREATININE SERUM 0.8 mg/dL (0.7-1.3); GFR1 > 60 mL/min; GLUCOSE SERUM 135 mg/dL (74-106); MAGNESIUM 1.2 mg/dL (1.8-2.4)
[2019-01-30 17:59] LABS: SODIUM SERUM 123 mmol/L (136-145)
[2019-01-30 19:33] LABS: microscopic required? NO
[2019-01-30 19:50] LABS: CHOLESTEROL/HDL RATIO 2.4
[2019-01-30 19:54] LABS: T3 TOTAL 0.76 ng/mL
[2019-01-30 20:00] LABS: UA SPECIFIC GRAVITY <=1.005 (1.005-1.035); urine erythrocyte NEGATIVE (NEGATIVE)
[2019-01-30 20:08] LABS: FREE T4 1.08 ng/dL (0.76-1.46); FREE THYROXINE INDEX 2.4 ug/dL (1.4-4.5); T4(THYROXINE) 6.9 ug/dL (4.7-13.3)
[2019-01-30 20:29] VITALS: BP 146/96
[2019-01-31 06:47] LABS: CALCIUM 8.5 mg/dL (8.5-10.1); CARBON DIOXIDE 26.6 mmol/L (21-32); CHLORIDE SERUM 98 mmol/L (98-107); CREATININE SERUM 0.8 mg/dL (0.7-1.3); GFR1 > 60 mL/min; GLUCOSE SERUM 237 mg/dL (74-106); MAGNESIUM 1.7 mg/dL (1.8-2.4); PHOSPHOROUS 3.1 mg/dL (2.5-4.9); POTASSIUM SERUM 3.8 mmol/L (3.5-5.1); SODIUM SERUM 131 mmol/L (136-145)
[2019-01-31 06:51] LABS: BASOPHIL % 0.5 % (0-2); PLATELET COUNT 358 x10^3mcL (130-400); RED CELL DISTRIBUTION WIDTH 13.7 % (11.5-14.5)
[2019-01-31 07:06] VITALS: BP 150/96
[2019-01-31 10:14] VITALS: BP 150/75
[2019-01-31 15:24] VITALS: BP 142/93
[2019-01-31 16:16] VITALS: BP 123/83
[2019-01-31 20:35] VITALS: BP 146/85
[2019-02-01 05:46] VITALS: BP 136/89
[2019-02-01 06:43] LABS: CARBON DIOXIDE 26.4 mmol/L (21-32); CHLORIDE SERUM 103 mmol/L (98-107); CREATININE SERUM 0.7 mg/dL (0.7-1.3); GFR1 > 60 mL/min; GLUCOSE SERUM 175 mg/dL (74-106); POTASSIUM SERUM 3.9 mmol/L (3.5-5.1); SODIUM SERUM 137 mmol/L (136-145)
[2019-02-01 07:02] LABS: BASOPHIL % 0.6 % (0-2); PLATELET COUNT 322 x10^3mcL (130-400); RED CELL DISTRIBUTION WIDTH 14.3 % (11.5-14.5)
[2019-02-01 20:56] VITALS: BP 159/97
[2019-02-01 22:42] VITALS: BP 141/94
[2019-02-01 23:16] VITALS: BP 144/93
[2019-02-02 06:14] VITALS: BP 143/94
[2019-02-02 07:00] LABS: CALCIUM 8.2 mg/dL (8.5-10.1); CHLORIDE SERUM 100 mmol/L (98-107); CREATININE SERUM 0.9 mg/dL (0.7-1.3); GFR1 > 60 mL/min; GLUCOSE SERUM 109 mg/dL (74-106); POTASSIUM SERUM 4.2 mmol/L (3.5-5.1); SODIUM SERUM 137 mmol/L (136-145)
[2019-02-02 07:14] LABS: BASOPHIL % 0.7 % (0-2); PLATELET COUNT 368 x10^3mcL (130-400); RED CELL DISTRIBUTION WIDTH 13.3 % (11.5-14.5)
[2019-02-02 09:06] VITALS: BP 136/88
[2019-02-02] MEDS ORDERED: METFORMIN HCL1000 MG PO (10:06)
[2019-02-02] MEDS ORDERED: ZESTRIL20 MG PO (10:06)
[2019-02-02] MEDS ORDERED: CYMBALTA20 M1 PO (10:06)
[2019-02-02] MEDS ORDERED: PAXIL10 MG PO (10:06)
[2019-02-02] MEDS ORDERED: ATENOLOL25 MG PO (10:07)
[2019-02-02 16:49] VITALS: BP 129/81
[2019-02-02 21:28] VITALS: BP 126/90
[2019-02-03 06:21] VITALS: BP 137/91
[2019-02-03 09:04] VITALS: BP 141/85
[2019-02-03 11:08] VITALS: BP 141/85
== END 2019-02-03 12:03 | disposition home or self-care (01) | DRG 640 ==
LOC: ED 15:47 → DU 19:02
PROVIDERS: Emergency Medicine; Internal Medicine; ADMIT General Practice
DX: E87.1 Hypo-osmolality and hyponatremia (principal); G93.41 Metabolic encephalopathy; Z68.1 Body mass index [BMI] 19.9 or less, adult; E11.65 Type 2 diabetes mellitus with hyperglycemia; F41.1 Generalized anxiety disorder; E83.42 Hypomagnesemia; E87.6 Hypokalemia; I10 Essential (primary) hypertension; F10.20 Alcohol dependence, uncomplicated; F17.210 Nicotine dependence, cigarettes, uncomplicated; F12.10 Cannabis abuse, uncomplicated; Z79.4 Long term (current) use of insulin; Z79.84 Long term (current) use of oral hypoglycemic drugs; Z91.14 Patient's other noncompliance with medication regimen; Z79.1 Long term (current) use of non-steroidal anti-inflammatories (NSAID)
CPT/HCPCS: 82962; 83880; 84439; G0480; J1815; J2060; J3411; J3475; J3490; J7030; Q0092

== ENCOUNTER 2019-03-26 15:34 | Emergency (ER) | payer OTHER ==
[~2019-03-26 15:34] MED LIST changes: +ATENOLOL25 MG PO; +CYMBALTA20 M1 PO; +ZESTRIL20 MG PO
[2019-03-26 15:48] VITALS: Ht 182.9 cm
[2019-03-26 16:59] LABS: BASOPHIL % 0.6 % (0-2); PLATELET COUNT 323 x10^3mcL (130-400); RED CELL DISTRIBUTION WIDTH 12.6 % (11.5-14.5)
[2019-03-26 17:36] LABS: CALCIUM 9.2 mg/dL (8.5-10.1); CARBON DIOXIDE 21.3 mmol/L (21-32); CHLORIDE SERUM 93 mmol/L (98-107); GFR1 > 60 mL/min; GLUCOSE SERUM 420 mg/dL (74-106); POTASSIUM SERUM 4.1 mmol/L (3.5-5.1); SODIUM SERUM 128 mmol/L (136-145)
[2019-03-26 17:40] LABS: ALBUMIN 3.4 g/dL (3.4-5.0); ALKALINE PHOSPHATASE 154 U/L (46-116); ALT/SGPT 22 U/L (16-63); AST/SGOT 14 U/L (15-37); BILIRUBIN TOTAL 0.4 mg/dL (0.20-1.00); MAGNESIUM 1.3 mg/dL (1.8-2.4); TOTAL PROTEIN, SERUM 7.1 g/dL (6.4-8.2)
[2019-03-26 20:24] VITALS: BP 154/94
== END 2019-03-26 20:24 | disposition home or self-care (01) ==
LOC: ED 15:34
PROVIDERS: Emergency Medicine
DX: E11.65 Type 2 diabetes mellitus with hyperglycemia (principal); I10 Essential (primary) hypertension; F41.9 Anxiety disorder, unspecified; F17.210 Nicotine dependence, cigarettes, uncomplicated; E83.42 Hypomagnesemia; Z88.5 Allergy status to narcotic agent; Z76.0 Encounter for issue of repeat prescription
CPT/HCPCS: 82962; 99406; J3475; J7030; Q0092

== ENCOUNTER 2019-04-03 15:20 | Emergency (ER) | payer OTHER ==
[~2019-04-03] VITALS: Ht 180.3 cm; Wt 64.9 kg
[2019-04-03 15:56] VITALS: Ht 180.3 cm; Wt 64.9 kg
[2019-04-03 16:30] LABS: CALCIUM 9.6 mg/dL (8.5-10.1); CARBON DIOXIDE 27.6 mmol/L (21-32); CHLORIDE SERUM 97 mmol/L (98-107); CREATININE SERUM 0.9 mg/dL (0.7-1.3); GFR1 > 60 mL/min; GLUCOSE SERUM 273 mg/dL (74-106); POTASSIUM SERUM 3.8 mmol/L (3.5-5.1); SODIUM SERUM 133 mmol/L (136-145)
[2019-04-03 16:36] LABS: ALBUMIN 3.7 g/dL (3.4-5.0); ALKALINE PHOSPHATASE 137 U/L (46-116); ALT/SGPT 26 U/L (16-63); AST/SGOT 12 U/L (15-37); BILIRUBIN TOTAL 0.45 mg/dL (0.20-1.00); MAGNESIUM 1.7 mg/dL (1.8-2.4); TOTAL PROTEIN, SERUM 7.3 g/dL (6.4-8.2)
[2019-04-03 16:45] LABS: BASOPHIL % 0.4 % (0-2); PLATELET COUNT 335 x10^3mcL (130-400); RED CELL DISTRIBUTION WIDTH 12.6 % (11.5-14.5)
[2019-04-03 19:49] VITALS: BP 155/87
== END 2019-04-03 19:49 | disposition home or self-care (01) ==
LOC: ED 15:20
PROVIDERS: Emergency Medicine
DX: R53.1 Weakness (principal); F41.9 Anxiety disorder, unspecified; E11.649 Type 2 diabetes mellitus with hypoglycemia without coma; Z76.0 Encounter for issue of repeat prescription; I10 Essential (primary) hypertension; Z98.890 Other specified postprocedural states; Z88.5 Allergy status to narcotic agent
CPT/HCPCS: J2405; J3475; J7030